=== PATIENT | male | born 1950 | race Caucasian/White ===

== ENCOUNTER 2023-09-05 08:15 | Day surgery (SDC) | payer MEDICARE, SELFPAY ==
[2023-09-05] VITALS (25 sets, daily range): BP systolic 114–161; BP diastolic 64–86; PULSE 54–89; RESP 16–20; TEMP 35.7–36.6; O2SAT 90–96; BMI 41.1
[2023-09-05] MEDS: ACETAMINOPHEN 500 MG TABLET 1000 MG PO ×2 (08:40→18:02)
[2023-09-05] MEDS: OXYCODONE (CR) 10 MG TAB.ER.12H PO (08:40)
[2023-09-05] MEDS: CELECOXIB 200 MG CAPSULE PO (08:40)
[2023-09-05] MEDS: LACTATED RINGERS 1000 ML 1,000 ML 100 ML IV ×2 (08:45→11:40)
[2023-09-05] MEDS: SODIUM CHLORIDE 0.9 % (FLUSH) 10 ML SYRINGE IVF (08:45)
[2023-09-05] MEDS: fentaNYL 100 MCG/2 ML inj IVP (10:23)
[2023-09-05] MEDS: MIDAZOLAM HCL 1 MG/ML inj IVP (10:23)
--- NOTE | 2023-09-05 10:39 | SUR.PREOP ---
TIME?OUT:?1022 PT/trevor jim RN/ MARIXA alston/ anamaria corrales MDA?VERIFICATION?OF?SURGICAL?SITE,?PROCEDURE,?AND?CONSENT OBTAINED?PRIOR?TO?INVASIVE?PROCEDURE.
--- NOTE | 2023-09-05 11:15 | XR_ITS ---
Patient: VERNON MARQUEZ Facility:?[facility] Patient ID:?[id number] Site Patient ID:?[id number]. Site :?[id number] Study:?XRay-Hip Left hip 1V-09/05/2023 1:00:22 PM Ordering Physician:SERGO Final Report: Indication: Hip replacement surgery Technique: AP hip fluoroscopic images. Fluoroscopy time 85.5 seconds. Findings/Impression: Hardware from a left total hip arthroplasty is in satisfactory position. Dictated by Kelton Avila MD @ 09/06/2023 8:41:47 AM Signed by:?Kelton Avila MD @09/06/2023 8:41:47 AM (Electronic Signature)
[2023-09-05] MEDS: TRANEXAMIC ACID 100 MG/ML INJ 1000 MG IV (11:18)
[2023-09-05] MEDS: CEFAZOLIN 2 GM INJ IVP (11:18)
--- NOTE | 2023-09-05 11:41 | W.ANESCHARGE ---
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
--- NOTE | 2023-09-05 12:56 | XR_ITS ---
Patient: VERNON MARQUEZ Facility:?[facility] Patient ID:?[id number] Site Patient ID:?[id number]. Site :?[id number] Study:?XRay-Hip Left POST OP-09/05/2023 1:47:16 PM Ordering Physician:SERGO Final Report: Indication: Postop Technique: AP hip centered pelvis and lateral view left hip Findings/Impression: Hardware from a left total hip arthroplasty is in satisfactory position. Bone alignment is normal. No sign of acute fracture. Postop changes are within normal limits. Dictated by Kelton Avila MD @ 09/06/2023 8:42:33 AM Signed by:?Kelton Avila MD @09/06/2023 8:42:33 AM (Electronic Signature)
--- NOTE | 2023-09-05 12:57 | PM.ORPRC ---
Procedure Note Date of procedure: 09/05/23 Procedure: PREOPERATIVE DIAGNOSIS: Left hip osteoarthritis POSTOPERATIVE DIAGNOSIS: Left hip osteoarthritis NAME OF OPERATION: Left total hip arthroplasty SURGEON: Macario Watson MD [employer] ATTENDANT: Jermain Rhodes PA-C, KRYSTAL Ruiz IMPLANTS: 1. [employer] [place] # 54 sector ingrowth cup 2. 36 x 54 +4 neutral polyethylene 3. Actis # 6 high offset collared ingrowth stem 4. 36 + 1.5 ceramic femoral head ANESTHESIA: General ESTIMATED BLOOD LOSS: 500 cc COMPLICATIONS: None SPECIMENS: None DRAINS: None PREOPERATIVE ANTIBIOTICS: Ancef 2 grams INDICATIONS: The patient is a 73-year-old with a longstanding history of severe, unrelenting left hip pain secondary to end-stage left hip osteoarthritis. Despite appropriate nonoperative management, including activity modification, use of an assist device, anti-inflammatories, [id number] pain medication, physical therapy and injections, they continue to have pain and disability. Operative intervention was offered. The risks, benefits and expected outcomes were discussed in detail. These included but were not limited to: Infection, bleeding, injury to blood vessel or nerve, venous thromboembolism. All questions were answered to their satisfaction. Use of an nurses medical assistants phlebotomists was necessary throughout the case for patient positioning and safety, soft tissue retraction and closure. PROCEDURE: The patient was placed supine on the [place] table. General anesthesia was administered. The nurses medical assistants phlebotomists made sure the patient was properly positioned. The left hip was prepped and draped in the usual sterile fashion. The image intensifier was brought in for a perfect AP pelvis and a perfect double tear drop AP view of each hip which were used for intraoperative templating with our fluoroscopic guide. An oblique incision was made 3 cm distal and 3 cm lateral to the anterior superior iliac spine. The nurses medical assistants phlebotomists retracted the soft tissues to protect them. Subcutaneous dissection was taken with electrocautery to the superficial fascia. The fascia was divided in line with the incision. Blunt dissection was carried medially to the tensor fascia mio and sartorius interval. Deep dissection was carried with electrocautery. The circumflex vessels were cauterized and divided. The capsule was exposed and then divided in a T-fashion, tagged with #1 Ethibond sutures. Retractors were placed in the joint, held by the nurses medical assistants phlebotomists. The corkscrew was placed in the femoral head. The neck cut was made in the subcapital region. We made a second neck cut more distal. The napkin ring of bone was removed. The femoral head was removed intact. Acetabular retractors were placed, held by the nurses medical assistants phlebotomists. The labrum was sharply debrided. The capsule was released. The 43 mm reamer was used to the true medial wall. We then enlarged in 2 mm increments using the image intensifier for our reamer placement. We impacted the cup which had poor purchase. Therefore, we provisionally seated the cup. We placed 2 x 6.5 mm x 40 mm screws up the ilium. Their placement was confirmed with the image intensifier. These had excellent purchase and resulted in good fixation of the cup. We placed the polyethylene. Attention was then turned to the proximal femur. The limb was placed in 140 degrees of external rotation, maximum extension and adduction. A significant amount of time was spent releasing the capsule to allow us to deliver the femur into the wound and complete the femoral side safely. Retractors were held by the nurses medical assistants phlebotomists throughout the femoral preparation. The corrugated box machine operator and canal finder were used. Broaches were used to a stable size. The calcar reamer was used. Trial components were placed. The hip was reduced and was found to be stable with appropriate soft tissue tension. Length and offset had been nicely restored using the image intensifier and our fluoroscopic guide. Trial components were removed. The stem was impacted. We placed the femoral head. Again, the hip was reduced and was found to be stable with appropriate soft tissue tension. Length and offset had been nicely restored. The nurses medical assistants phlebotomists did a three minute dilute Betadine solution soak. The nurses medical assistants phlebotomists irrigated the wound with 3 liters of normal saline via pulse lavage. The nurses medical assistants phlebotomists repaired the anterior capsule with a #1 Vicryl and our previously placed Ethibond sutures. The nurses medical assistants phlebotomists closed the fascia over the tensor fascia mio with a #1 PDO Stratafix, subcutaneous tissues with 2-0 Vicryl, skin with a running 3-0 Stratafix and glue. A dry dressing was applied by the nurses medical assistants phlebotomists. Sponge and needle counts were correct x 2. The patient tolerated the procedure well; there were no apparent complications. They were awakened and extubated in the operating room, sent to the Post-Anesthesia Care Unit in satisfactory condition. PLAN: 1. The patient will be mobilized with physical therapy, weight-bearing as tolerates 2. Xarelto x 5 days then aspirin x 30 days will be used for DVT prophylaxis 3. The patient will be discharged once medically appropriate
--- NOTE | 2023-09-05 13:35 | P.ANES_ITS ---
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
--- NOTE | 2023-09-05 14:28 | W.PM.NB ---
Nerve Block Nerve Block Time Seen by Provider: 10:22 Date Seen: 09/05/23 Type of block requested by surgeon for post-operative analgesia: YVETTE/LFCN Side: left Time out performed: Yes Verification of patient name: Yes Verification of date of : Yes Site marking: site marked Name of person performing procedure: Ibrahima Assistants, if any: David Continuous monitoring Was continuous monitoring of O2 sat, B/P, color television console monitor, recorded every 15 minutes?: Yes Procedure Checklist: sterile prep, needles and gloves Ultrasound guided. Images saved: Yes Medications given in 5ml increments after negative aspiration: Ropivicaine %: 0.5 mL: 30 Needle gauge: 20 Decadron (mg): 10 Precedex (mcg): 25 Patient tolerated procedure well: Yes Additional comments: Needle noted below psoas tendon needle noted adjacent to LFCN Block Charges Block Charge (with Pro Fee): Other Periph Nerve Block Use of Ultrasound Machine for Block: Yes- US Guidance/pain block
[2023-09-05] MEDS: LACTATED RINGERS 1000 ML 1,000 ML 75 ML IV (15:03)
--- NOTE | 2023-09-05 15:43 | PC.NURSE ---
(Shift end 1530) Pt arrived from surgery at 1408. Pt arrived on oxygen; Pt on 2-3 Liters to maintain saturations. Per RT Pt okay to be at 90%. Pt's VSS. Pt's dressing dry and intact. Pt had pain of 3 but stated was tolerating pain and did not need pain medications at this time. Pt tolerating ice chips and water; Pt advanced to juice and crackers.
--- NOTE | 2023-09-05 17:43 | P.IMCN_ITS ---
Date of Consult Patient: Rolando Patient Consult date: 09/05/23 Requesting Physician: Orthopedics Primary Care Provider: Carroll Jones MD Consult Narrative Reason for consult: HTN, COPD Narrative: Torrey Zimmer is a 73 year old male with history of hypertension and COPD who underwent a left total hip arthroplasty today for severe osteoarthritis. He is feeling well after surgery and has no pain at this time. He states that he was recently prescribed a very expensive inhaler for COPD, but hasn't picked it up from the pharmacy or started it yet. He has SOB with certain activities that has been going on for a long time; no worsening recently. Review of Systems Status of ROS: Reports: 6 or more systems reviewed and unremarkable except as noted in History and below PFSH [facility] Medical History (Updated 09/05/23 @ 19:07 by Estrella Key MD) COPD with chronic bronchitis ?J44.89 - Other specified chronic obstructive pulmonary disease (ICD-10) Colon polyp ?K63.5 - Polyp of colon (ICD-10) Erectile dysfunction ?N52.9 - Male erectile dysfunction, unspecified (ICD-10) Hypertension ?I10 - Essential (primary) hypertension (ICD-10) Gout ?M10.9 - Gout, unspecified (ICD-10) Surgical History (Updated 09/05/23 @ 17:49 by Estrella Key MD) S/P total left hip arthroplasty ?Z96.642 - Presence of left artificial hip joint (ICD-10) Status post total replacement of right hip ?Z96.641 - Presence of right artificial hip joint (ICD-10) Family History (Updated 09/05/23 @ 17:46 by Estrella Key MD) Mother Heart disease Social History (Updated 09/05/23 @ 19:06 by Estrella Key MD) Narrative: Lives independently. Quit smoking 10 years ago. 3 alcoholic drinks per day. 1 THC gummy every other evening to help with sleep and pain. Denies any other recreational drug use. How often do you have a drink containing alcohol: monthly or less AUDIT-C Alcohol total score: 1 Non-prescribed substance use: denies use Caffeine: Yes Meds Home Medications and Allergies Home Medications Medication Instructions Recorded Confirmed Type allopurinol 300 mg tablet 300 mg PO DAILY 05/29/23 09/05/23 History celecoxib 200 mg capsule 200 mg PO DAILY 05/29/23 09/05/23 History lisinopril 20 1 tab PO DAILY 05/29/23 09/05/23 History mg-hydrochlorothiazide 12.5 mg tablet tamsulosin 0.4 mg capsule 0.4 mg PO DAILY 05/29/23 09/05/23 History indomethacin 25 mg capsule 25 - 50 mg PO Q8H PRN 09/05/23 09/05/23 History tramadol 50 mg tablet 50 mg PO TID PRN pain 09/05/23 09/05/23 History Allergies Allergy/AdvReac Type Severity Reaction Status Date / Time No Known Drug Allergies Allergy Verified 09/05/23 08:35 Exam Narrative: Exam Narrative: General: No acute distress. Awake alert oriented x3. HEENT: Normocephalic atraumatic, pupils equally round and reactive to light and accommodation. Oropharynx clear. Mucous membranes are moist. No cervical lymphadenopathy, thyromegaly or carotid bruits. No JVD. Cardiovascular: Regular rate and rhythm. No murmurs, gallops, or rubs. Chest: No increased work of breathing. Clear to auscultation bilaterally. No crackles or wheezes. Abdomen: Bowel sounds present. Soft, nondistended, nontender. No hepatosplenomegaly or masses. Extremities: Left hip bandage is clean, dry, and intact. No edema, no cyanosis or clubbing. Skin: No jaundice, no pallor. Const: Vital Signs, click to edit/add: Vital Signs - 24 hr 09/05/23 01:30 09/05/23 08:53 09/05/23 10:15 Temperature 97.9 F Pulse Rate 70 59 L 59 L Respiratory Rate 16 20 20 Blood Pressure 151/81 H 150/86 H 131/66 Pulse Oximetry 92 91 96 Oxygen Delivery Me thod Nasal Cannula Room Air Nasal Cannula Oxygen Flow Rate 2 2 09/05/23 10:20 09/05/23 10:25 09/05/23 10:30 Temperature Pulse Rate 56 L 57 L 54 L Respiratory Rate 18 18 18 Blood Pressure 114/64 124/68 124/68 Pulse Oximetry 96 96 95 Oxygen Delivery Me thod Nasal Cannula Nasal Cannula Nasal Cannula Oxygen Flow Rate 4 5 5 09/05/23 13:30 09/05/23 13:35 09/05/23 13:40 Temperature 97.3 F L Pulse Rate 77 72 72 Respiratory Rate 16 16 16 Blood Pressure 161/74 H 142/79 H 141/72 H Pulse Oximetry 91 92 92 Oxygen Delivery Me thod Nasal Cannula Nasal Cannula Nasal Cannula Oxygen Flow Rate 2 2 2 09/05/23 13:45 09/05/23 13:50 09/05/23 13:55 Temperature Pulse Rate 70 68 69 Respiratory Rate 16 16 16 Blood Pressure 152/67 H 151/81 H 150/80 H Pulse Oximetry 92 93 93 Oxygen Delivery Me thod Nasal Cannula Nasal Cannula Nasal Cannula Oxygen Flow Rate 2 2 2 09/05/23 14:00 09/05/23 14:08 09/05/23 14:15 Temperature 96.2 F L 96.2 F L Pulse Rate 70 69 66 Respiratory Rate 16 18 18 Blood Pressure 146/78 H 130/76 139/75 Pulse Oximetry 91 90 90 Oxygen Delivery Me thod Nasal Cannula Nasal Cannula Nasal Cannula Oxygen Flow Rate 2 2 3 09/05/23 14:30 09/05/23 14:45 09/05/23 15:00 Temperature 96.5 F L 96.8 F L 96.7 F L Pulse Rate 66 63 66 Respiratory Rate 16 18 18 Blood Pressure 138/79 139/80 131/79 Pulse Oximetry 92 91 92 Oxygen Delivery Me thod Nasal Cannula Nasal Cannula Nasal Cannula Oxygen Flow Rate 3 3 3 09/05/23 15:30 09/05/23 16:00 09/05/23 17:00 Temperature 97.3 F L 97.6 F Pulse Rate 70 74 77 Respiratory Rate 18 18 16 Blood Pressure 115/65 126/74 137/80 Pulse Oximetry 93 93 91 Oxygen Delivery Me thod Nasal Cannula Nasal Cannula Nasal Cannula Oxygen Flow Rate 2 1 1 Assessment and Plan Assessment and plan (1) S/P total left hip arthroplasty: Problem comment: - 09/05/2023 Dr. Watson - routine postop cares - routine VTE prophylaxis with SCDs, Josep's hose, 5 days of Xarelto, then low- dose aspirin twice a day Status: Acute (2) Osteoarthritis of left hip: Status: Chronic (3) Hypertension: Problem comment: Hold lisinopril/hydrochlorothiazide tomorrow morning and resume upon elevated blood pressure or discharge home Status: Chronic (4) COPD with chronic bronchitis: Problem comment: - Monitor for hypoxia or exacerbation. If patient requires oxygen supplementation, keep O2 sats 88-90% to prevent hypercapnia. I will write for Yumiko hustonn while in the hospital. Status: Chronic
[2023-09-05] MEDS: OXYCODONE 5 MG TABLET PO (18:03)
[2023-09-05] MEDS: CEFAZOLIN 2 GM in 0.9 % SODIUM CHLORIDE Mini-bag 100 ML IVPB (18:04)
--- NOTE | 2023-09-05 23:07 | PC.NURSE ---
End of Shift: Patient pleasant and cooperative. Afebrile. Dressing to left hip C/D/I. CMS intact. Rating pain up to 5/10 and PRN oxycodone given x1. Up to chair and bathroom with 1 assist, walker and gait belt. Tolerating regular diet with no nausea. Able to wean off O2 while awake. Sats decrease to 80-83% on room air while sleeping and 1L O2 to keep sats above 88%.
[2023-09-06] MEDS: ACETAMINOPHEN 500 MG TABLET 1000 MG PO ×2 (01:09→06:09)
[2023-09-06] MEDS: OXYCODONE 5 MG TABLET PO ×2 (01:10→08:26)
[2023-09-06] MEDS: CEFAZOLIN 2 GM in 0.9 % SODIUM CHLORIDE Mini-bag 100 ML IVPB (01:11)
[2023-09-06 01:14] VITALS: BP 127/76; PULSE 78; RESP 20; TEMP 36.3; O2SAT 90
--- NOTE | 2023-09-06 05:26 | PC.NURSE ---
Shift note: Pt has been doing well ambulating with A1 and walker. Pain level has been at 7. 1x PRN oxycodone was given. Dressing appeared clean and dry.Tolerated regular diet well.
[2023-09-06 06:31] LABS: Basophils Percent Auto 0.1 % (0.0-3.0); Immature Granulocytes Pct Auto 0.1 %; Lymphocytes Percent Auto 7.7 % (20-44); Mean Corpuscular HGB Conc 32 gm/dL (32-36); Mean Corpuscular Hemoglobin 33 pg (26-34); Mean Corpuscular Volume 101 fL (80-100); Neutrophils Percent Auto 82.1 % (42.0-72.0); Platelet Count* 313 K/uL (140-440); RDW Coefficient of Variation % 12.7 % (11.5-15.5); Red Blood Count 3.67 m/uL (4.30-5.90); White Blood Count* 13.85 K/uL (4.50-11.00)
[2023-09-06 07:01] LABS: Potassium* 4.8 mmol/L (3.6-5.1); Sodium* 135 mmol/L (135-149)
[2023-09-06 07:04] LABS: Creatinine* 0.9 mg/dL (0.5-1.5); Est. Creatinine Clearance* 61.14; Estimated Glomerular Filt Rate 91 ml/min
[2023-09-06 07:05] LABS: Blood Urea Nitrogen* 32 mg/dL (7-30)
[2023-09-06 07:30] LABS: Slide Review Reflex No
[2023-09-06 08:25] VITALS: BP 122/83; PULSE 68; RESP 20; TEMP 36.8; O2SAT 91
[2023-09-06] MEDS: SENNOSIDES 1 TAB TABLET 2 TAB PO (08:25)
[2023-09-06] MEDS: allopurinoL 300 MG TABLET PO (08:25)
[2023-09-06] MEDS: RIVAROXABAN 10 MG TABLET PO (08:26)
--- NOTE | 2023-09-06 09:01 | PM.ORPN ---
Subjective Subjective Time Seen by Provider: 08:15 Date Seen: 09/06/23 Principal diagnosis: Day 1 s/p left total hip arthroplasty Interval history: Que is doing well and resting comfortably in bed, although frequent repositioning during our conversation. Que c/o left hip pain he ranks 6/10 with movement, minimal pain at rest. Pain is well managed with icing, Tylenol and Oxycodone. Denies: fever, chills, chest pain, SOB, numbness/tingling distally. Patient admits to trouble breathing with sleeping supine; reports this improves with sleeping left lateral decubitus. Denies bowel movement postoperatively, denies flatulence. Last BM Monday. Patient struggles with constipation regularly. Patient has history of gout that is well controlled with allopurinol. He has a PRN order for celecoxib and indomethacin - both of which I have instructed him to discontinue. Patient states understanding and explains he has not taken these medications in a few years. Ortho Exam Narrative Exam Narrative: Incision/Dressing: Dressing appears clean and dry. No drainage present. Mepilex intact. Left hip appears moderately swollen but supple with no obvious erythema, fluctuance or excessive warmth. No ecchymosis or erythematous streaking. Warmth around the wound is appropriate. Ice is being utilized as needed. CMS: Intact distally with 2+ Dorsalis pedis and Posterior Tibial pulses. 5/5 motor strength dorsal and plantar flexion. Confirmed sensation distally. Calf: Bilateral calves are supple, with no swelling, pain, tenderness, erythema, discoloration or coolness to the touch. Constitutional: Patient is alert and oriented x3. Patient is in no acute distress and converses without labored breathing. Patient is able to make decisions and demonstrates good insight. Patient is pleasant and cooperative. Affect is full range and appropriate for the circumstances. Const Vital Signs, click to edit/add: Vital Signs - 24 hr 09/05/23 10:15 09/05/23 10:20 09/05/23 10:25 Temperature Pulse Rate 59 L 56 L 57 L Pulse Rate [Pulse Oximeter] Respiratory Rate 20 18 18 Blood Pressure 131/66 114/64 124/68 Blood Pressure [Left Arm] Pulse Oximetry 96 96 96 Oxygen Delivery Method Nasal Cannula Nasal Cannula Nasal Cannula Oxygen Flow Rate 2 4 5 09/05/23 10:30 09/05/23 13:30 09/05/23 13:35 Temperature 97.3 F L Pulse Rate 54 L 77 72 Pulse Rate [Pulse Oximeter] Respiratory Rate 18 16 16 Blood Pressure 124/68 161/74 H 142/79 H Blood Pressure [Left Arm] Pulse Oximetry 95 91 92 Oxygen Delivery Method Nasal Cannula Nasal Cannula Nasal Cannula Oxygen Flow Rate 5 2 2 09/05/23 13:40 09/05/23 13:45 09/05/23 13:50 Temperature Pulse Rate 72 70 68 Pulse Rate [Pulse Oximeter] Respiratory Rate 16 16 16 Blood Pressure 141/72 H 152/67 H 151/81 H Blood Pressure [Left Arm] Pulse Oximetry 92 92 93 Oxygen Delivery Method Nasal Cannula Nasal Cannula Nasal Cannula Oxygen Flow Rate 2 2 2 09/05/23 13:55 09/05/23 14:00 09/05/23 14:08 Temperature 96.2 F L Pulse Rate 69 70 69 Pulse Rate [Pulse Oximeter] Respiratory Rate 16 16 18 Blood Pressure 150/80 H 146/78 H 130/76 Blood Pressure [Left Arm] Pulse Oximetry 93 91 90 Oxygen Delivery Method Nasal Cannula Nasal Cannula Nasal Cannula Oxygen Flow Rate 2 2 2 09/05/23 14:15 09/05/23 14:30 09/05/23 14:45 Temperature 96.2 F L 96.5 F L 96.8 F L Pulse Rate 66 66 63 Pulse Rate [Pulse Oximeter] Respiratory Rate 18 16 18 Blood Pressure 139/75 138/79 139/80 Blood Pressure [Left Arm] Pulse Oximetry 90 92 91 Oxygen Delivery Method Nasal Cannula Nasal Cannula Nasal Cannula Oxygen Flow Rate 3 3 3 09/05/23 15:00 09/05/23 15:30 09/05/23 16:00 Temperature 96.7 F L 97.3 F L Pulse Rate 66 70 74 Pulse Rate [Pulse Oximeter] Respiratory Rate 18 18 18 Blood Pressure 131/79 115/65 126/74 Blood Pressure [Left Arm] Pulse Oximetry 92 93 93 Oxygen Delivery Method Nasal Cannula Nasal Cannula Nasal Cannula Oxygen Flow Rate 3 2 1 09/05/23 17:00 09/05/23 18:00 09/05/23 19:00 Temperature 97.6 F Pulse Rate 77 70 89 Pulse Rate [Pulse Oximeter] Respiratory Rate 16 16 16 Blood Pressure 137/80 137/80 140/81 H Blood Pressure [Left Arm] Pulse Oximetry 91 90 92 Oxygen Delivery Method Nasal Cannula Room Air Room Air Oxygen Flow Rate 1 09/05/23 20:00 09/05/23 23:00 09/05/23 23:00 Temperature 97.6 F Pulse Rate 73 Pulse Rate [Pulse Oximeter] Respiratory Rate 16 20 20 Blood Pressure 131/70 Blood Pressure [Left Arm] Pulse Oximetry 90 90 Oxygen Delivery Method Room Air Room Air Oxygen Flow Rate 1 09/05/23 23:00 09/06/23 01:14 09/06/23 08:25 Temperature 97.6 F 97.4 F L Pulse Rate Pulse Rate [Pulse Oximeter] 72 78 Respiratory Rate 20 20 Blood Pressure Blood Pressure [Left Arm] 133/70 127/76 Pulse Oximetry 90 90 91 Oxygen Delivery Method Room Air Room Air Room Air Oxygen Flow Rate 1 1 Assessment and Plan Assessment and plan (1) S/P total left hip arthroplasty: Problem details: DOS: 09/05/2023 Dr. Watson. Status: Acute Assessment and Plan: Que asked about sleeping on his left side. I explained it is okay and safe to do so, however this may cause extra discomfort. Que says the extra pain is worth breathing easier while sleeping. Anticipate Que will be discharged this afternoon, if Que remains medically stable, pain is controlled and is safe with ambulation. If Que continues to struggle with constipation while taking Senna, he will contact our clinic for further instruction. Wound: ? Do not remove original dressing; we will remove this at first postop visit in 1 week. Only remove dressing if integrity is in question. ? No immersing wound in water; showering okay; light scrub with your hand and body soap, rinse, dab dry ? Sutures are under the skin, will dissolve; allow surgical glue to come off naturally; do not scrub the wound or apply ointments/lotions ? Call our office with any redness that streaks, excessive drainage from the wound, or wound gapping. Ice/Elevate: ? Ice as needed for swelling and discomfort (ice pack); elevate extremity frequently above the heart. Motion/Exercise: ? Weight bear as tolerated operative extremity (walker/cane for ambulation assistance as needed) ? Per PT/OT. ? Straight leg raises daily: 1-2 sets of 10 reps Pain Medications: ? Oral narcotic as prescribed. Wean as tolerated. Additional acetaminophen as needed. Recommend Que take Oxycodone one hour before bed and one hour before Physical Therapy. KAI socks: ? Wear for 1 month, remove for 1 hour 3 times per day ? These are frustrating to take on/off, but are important for blood clot prevention for 1 month after surgery Blood Clot Prevention (DVT): ? Medication: 5 days of Xarelto, followed by 30 days 81 mg aspirin by mouth twice daily Driving: ? Do not drive while taking narcotic pain medication ? Anticipate 4-6 weeks no driving if operative leg is driving leg Dental: ? No elective dental work for 6 months post-op. If there is an urgent/emergent dental need, contact our office for an antibiotic prescription. Smoking/Alcohol: ? Do not smoke; do no drink alcohol especially when taking postoperative oral narcotic medication Seek Care from you Primary Care Provider if you experience the following issues in the postoperative phase and beyond: ? Bacterial infections such as: pneumonia, bacterial skin infection (cellulitis), UTI, high fever, chills unrelated to the operative body part - call your primary care physician urgently for treatment in hopes to protect your health and the metal implant. Referrals: ? PT, OT per patient preference - evaluate treat total hip arthroplasty protocol, anterior approach (gait training, ROM, ADLs) Vaccines: ? No vaccines until 4-6 weeks postop Follow up: ? PA-C visit in 1 week. ? Ortho surgeon follow-up in 6 weeks; repeat radiographs AP pelvis, cross table lateral operative hip If there are any acute concerns regarding your surgery, please call our orthopedic clinic ([phone])
== END 2023-09-06 10:55 | disposition home or self-care (01) ==
LOC: OR 08:17 → MEDSURG 08:21
PROVIDERS: PCP Family Medicine; Visit Provider Orthopaedic Surgery
PROC: (CPT 27130; principal; 2023-09-05 11:15)
DX: M16.12 Unilateral primary osteoarthritis, left hip (principal); G89.18 Other acute postprocedural pain; I10 Essential (primary) hypertension; J44.89 Other specified chronic obstructive pulmonary disease; M10.9 Gout, unspecified
CPT/HCPCS: 27130; 01214; 36415; 64450; 73501; 76000; 76942; 82565; 84132; 84295; 84520; 85025; 86850; 86900; 86901; 97116; 97161; 97165; 97535; 99100; A9270; C1713; C1776; J0690; J1100; J1170; J2250; J2405; J2704; J2710; J2795; J3010; J7120

== ENCOUNTER 2023-09-13 09:39 | Outpatient (RCR) | payer MEDICARE, SELFPAY ==
--- NOTE | 2023-09-06 13:54 | PC.SOCIAL ---
Discharge planning: Pt stated he has two options of places he can stay in town after his discharge. Pt stated he feels good about discharging and has no other concerns at this time. Social work to follow-up as needed.
--- NOTE | 2023-09-13 11:01 | PT.OPEX ---
PT [facility] PT [facility] Outpatient Eval Start: 08/10/23 11:50 Freq: Status: Active Protocol: Document 09/13/23 07:06 MLS (Rec: 09/13/23 11:00 MLS [id number]) E-signed By Zuleyka Sheridan DPT Physical Therapy Outpatient Evaluation Insurance Information Recert Due Date 12/11/23 Insurance Name Medicare B,[employer] Medical Diagnosis M16.12 OA left hip Z96.642 presence of left artificial hip joint Treating Diagnosis Left CINTIA 09/05/[address] Watson Subjective Subjective Patient is a 73 year old male who presents to physical therapy with signs and symptoms consistent with s/p left CINTIA on 09/05/23. He states that He is doing good. He states that he is getting his exercises in every day. He states that he is struggling with his sleep. He states that he slept in a chair originally after surgery and is now able to sleep in bed. Patient reports that he lives in [place] and will be in town for about a week or so. Aggravating factors include: picking something up off the floor, laying on that side, bending forward. Alleviating factors include: ice, elevate . 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 Patient would like to return to fishing and his ADLs through doing his PT exercises. 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 [employer] Preferred Name Que Objective Other/Pertinent Objective Gait Antalgic gait with single point cane Significant swelling noted to left ankle KNEE ROM Grossly tested WNL B HIP ROM Right: Grossly tested WNL Left: Extension/Flexion:0-80 Internal Rotation: 20 External Rotation:30 Abduction:20 LLE MMT: Hip flexion: R 5/5 L 4-/5 Hip abduction: R 5/5 L 3/5 Hip extension: R /5 L 4-/5 Knee flexion: R 5/5 L 4-/5 Knee extension: R 5/5 L 4-/5 TX: Reviewed current HEP: Quad set x 10, hold for 5 sec glut set x 10 hamstring set x 10, hold for 5 heel slide x10 standing abduction x 10 slr x 3, quad lag, min assist needed standing mini squat x 10 standing hip flexion x 10 Next visit: Counter HS curl Counter heel raises LAQ Access Code: [email or web address] URL: [email or web address]/ Date: 09/13/2023 Prepared by: Zuleyka Sheridan Exercises - Active Straight Leg Raise with Quad Set - 1 x daily - 7 x weekly - 3 sets - 10 reps - Mini Squat with Counter Support - 1 x daily - 7 x weekly - 3 sets - 10 reps - Standing March with Counter Support - 1 x daily - 7 x weekly - 3 sets - 10 reps Functional Test Performed & Score 23/80 A score increase of 6 points shows a significant improvement in lower extremity function. Assessment Assessment/Impression Pt is a 73 year old male who presents s/p left CINTIA on . Patient also has notable objective findings including limited ROM, tenderness to palpation, and decreased strength which are also likely contributing to the problem. Patient is a good candidate for skilled therapy to target deficits described above. Skilled PT intervention is necessary for use of therapeutic exercise manual therapy, neuromuscular re- education, gait training, and therapeutic activity. Functional impairments include difficulty with: standing, walking, driving, exercising, ADLs and sleeping. See appropriate sections of PT eval for complete list of goals and POC. D/C plan and criteria is for pt to achieve the goals as listed below or until max rehab potential is met. Pt was agreeable with plan of care and goals established. He will be staying in town about a week and then returning to [place]. Primary Functional Limitations standing walking driving exercising ADLs sleeping Plan of Care Rehabilitation Potential Good Physical Therapy Goals Within 10-12 weeks: 1.Pt will demonstrate independence in performance of home exercise program with the use of video and/or handouts in order to optimize functional mobility and reduce risk for re-injury. 2.Pt will demonstrate consistent HEP compliance to ensure progress in reaching established goals during course of care. 3.Patient will be able to sit and drive for up to one hour without pain. 4.Patient will report pain levels <2/10 with all activities in order to improve functional mobility at home, work and during functional leisure activities. 5.Patient is able to sleep without waking more than one time due to pain in a 6-8 hour time frame. 6.Patient will be able to walk up to one mile without pain. 7.Patient will be able to bend and lift household items from the floor to shoulder height to perform ADLs without pain. 8.Pt will be able to ascend/ descend 1 flight of stairs in order to perform ADLs pain free. 9.Pt will exhibit 5 pt improvement in Lower Extremity Functional Scale to demonstrate functional improvement and progress towards goals Coordination/Communication With Referral Source Treatment Plan/Direct Interventions Manual Therapy,Neuromuscular Re-ed,Therapeutic Activities, Therapeutic Exercises Patient Will Be Discharged From Therapy Independently Progressing Evaluation Billing Untimed Code Treatment Minutes 30 Complexity Low Certification Information Physician Comment/Change : Physician NPI Number #
== END 2023-11-23 13:36 | disposition home or self-care (01) ==
PROVIDERS: PCP Family Medicine; Visit Provider Orthopaedic Surgery
DX: M16.12 Unilateral primary osteoarthritis, left hip (principal); Z96.642 Presence of left artificial hip joint; Z51.89 Encounter for other specified aftercare
CPT/HCPCS: 97110; 97161